=== PATIENT | male | born 1960 | race Caucasian/White ===

== ENCOUNTER 2021-10-23 10:57 | Outpatient (RCR) | payer OTHER, SELFPAY ==
[2021-10-23 11:04] VITALS: BMI 29.7
== END 2022-01-07 13:08 | disposition home or self-care (01) ==
LOC: ANHDMC 10:57
PROVIDERS: PCP Family Medicine; Visit Provider Physician Assistant
DX: E11.65 Type 2 diabetes mellitus with hyperglycemia (principal); Z71.3 Dietary counseling and surveillance
CPT/HCPCS: 97802

== ENCOUNTER 2022-07-31 06:32 | Outpatient (CLI) | payer OTHER, SELFPAY ==
--- NOTE | ~2022-07-31 | CT_ITS ---
EXAMINATION: CT chest abdomen pelvis w con DATE: 07/31/2022 07:13 INDICATION: Renal cell carcinoma. TECHNIQUE: Computed tomography (CT) of the chest, abdomen, and pelvis was performed with 100 mL Omnip aque 350 intravenous contrast. Automated exposure control and iterative reconstruction technique were employed. The dose-length product was 1053.70 mGy-cm. COMPARISON: None FINDINGS: CHEST CT: The lungs demonstrate mild atelectasis. No pleural effusion. The thyroid is enlarged. The heart size is normal. There are coronary artery calcifications. No pericardial effusion. There is mild bilateral gynecomastia. There is mild thoracic spondylosis. ABDOMEN/PELVIS CT: There is a 2.6 cm cyst in the liver. The gallbladder, spleen, pancreas, and adrenal glands are normal . There are changes of partial right nephrectomy. Left kidney is normal. The prostate is mildly enlar ged. There are no dilated loops of bowel. The appendix is normal. There are no dilated loops of bowel . There are no pathologically enlarged lymph nodes. There is no free intraperitoneal fluid. There is a lipoma in right rectus femoris muscle. There is severe degenerative disc disease at L5-S1. IMPRESSION: 1. Partial right nephrectomy. No evidence of metastatic disease. Reviewed, dictated and finalized at location A.
[2022-07-31 07:03] LABS: Estimated Glomerular Filt Rate > 60
== END 2022-07-31 06:33 | disposition home or self-care (01) ==
PROVIDERS: PCP Family Medicine
DX: C64.9 Malignant neoplasm of unspecified kidney, except renal pelvis (principal)
CPT/HCPCS: 71260; 74177; Q9967

== ENCOUNTER → 2023-10-24 12:49 | Outpatient (CLI) | payer OTHER, SELFPAY ==
--- NOTE | ~2023-10-24 | CT_ITS ---
EXAMINATION: CT chest abdomen pelvis w con DATE: 10/24/2023 13:20 INDICATION: History of renal cell carcinoma TECHNIQUE: Transaxial computed tomographic images of the chest, abdomen, and pelvis were obtained aft er the administration of 100 cc of Omnipaque 350 intravenous contrast. The dose-length product (DLP) was 1226.71 mGy-cm. Automated exposure control and iterative reconstruction technique were employed. COMPARISON: 07/31/2022 FINDINGS: CHEST CT: There is mild dependent atelectasis. The lungs are free of focal airspace opacities. No pleural effus ion or pneumothorax. No pathologically enlarged thoracic lymph nodes are identified. The heart size i s normal. Calcified coronary artery atherosclerosis is noted. There is minimal gynecomastia. There is mild thoracic spondylosis. ABDOMEN/PELVIS CT: The liver is diffusely low in attenuation when compared with the spleen, consistent with hepatic stea tosis. There is a 2.2 cm cyst of the right hepatic lobe. The spleen, pancreas, gallbladder, and adren al glands are normal. There are changes of right partial nephrectomy. No suspicious renal lesion is i dentified. There is a circumaortic left renal vein. No pathologically enlarged abdominal or pelvic ly mph nodes are identified. No free intraperitoneal gas or evidence of bowel obstruction. The appendix is normal. There is severe lumbar spondylosis at L5-S1. IMPRESSION: 1. Changes of partial right nephrectomy without evidence of recurrent or metastatic disease. Reviewed, dictated and finalized at location B. N ELEVATOR WORKER IMPRESSION: 1. Changes of partial right nephrectomy without evidence of recurrent or metast atic disease.
[2023-10-24 13:10] LABS: Estimated Glomerular Filt Rate 56
== END ==
PROVIDERS: PCP Family Medicine
DX: C64.9 Malignant neoplasm of unspecified kidney, except renal pelvis (principal)
CPT/HCPCS: 71260; 74177; Q9967

== ENCOUNTER 2024-12-22 00:40 | Day surgery (SDC) | payer OTHER, MEDICARE, SELFPAY ==
[2024-12-07 13:19] VITALS: BMI 29.2
--- OUTSIDE RECORDS SUMMARY | 2024-12-22 00:42 | XMS_ITS ---
Author Organization [facility] [address] [facility] Address [address] [place] [address] Care Team Providers Care Library Associate Name Role Phone Isis Leal MD Primary Care Provider [phone] Active Problems Problem Noted Date Diagnosed Date Abnormal stress test 10/28/2022 Elevated coronary artery calcium score Hypertension associated with diabetes 08/09/2022 Mixed diabetic hyperlipidemi a associated with type 2 diabetes mellitus 08/09/2022 Inappropriate sinus tachycardia 08/09/2022 Renal cell carcinoma 07/06/2020 Cancer Staging:Clinical stage from 08/22/2020:Stage I(cT1a, cN0, cM0) - Signed by Mingo Longo DO on 09/06/2020 Overview (07/06/2020): Added automatically from request for surgery [id number] Current Oncology Plans No current plan information found. Past Plans No past plan information found. Radiation Treatments * No radiation treatments are documented for this patient in [facility]. Treatments may have been administered in another system. Lifetime Dose Tracking * Chemical Lifetime Dose Automatic Entry Manual Entr y DLP 2,852 mGycm 2,852 mGycm 0 mGycm Resolved Problems Problem Noted Date Diagnosed Date Resolved Date Kidney lesion, [place], right 07/06/2020 09/06/2020
--- OUTSIDE RECORDS SUMMARY | 2024-12-22 00:42 | XMS_ITS | Clinical Summary ---
Author Organization [facility] Address [address] [place] [id number] Care Team Providers Care Autoglazier Name Role Phone Isis Leal MD Primary Care Provider [phone] Social History Tobacco Use Types Packs/Day Years Used Date Smoking Tobacco: Never Assessed Sex and Gender Information Value Date Recorded Sex Assigned at Not on file Legal Sex Male 11:27 AM CDT Gender Identity Not on file Sexual Orientation Not on file Plan of Treatment Health Maintenance Due Date Last Done Comments Colorectal Cancer Screening Colonoscopy (10 Years) 1959 Hepatitis C 1977 DTaP, Tdap and Td Vaccines (1 - Tdap) 1978 COVID-19 Vaccine ( season) 2024 09/22/2021, 02/04/2021, 12/27/2020 Influenza Adult (#1) 2024 08/02/2021, 07/11/2020, 07/31/2019, Additional history exists RSV Immunization or 60+ Years (1 - 1-dose 75+ series) 2034 Pneumococcal Vaccine: 65+ Years Completed 02/12/2022, 03/27/2016 Pneumococcal Vaccine: Pediatrics (0 to 5 Years) and At-Risk Patients (6 to 64 Years) Aged Out 02/12/2022, 03/27/2016 No longer eligibl e based on patient's age to complete this topic Zoster Vaccines Completed 02/12/2022, 11/13/2021 Meningococcal B Vaccine Aged Out No l onger eligible based on patient's age to complete this topic Meningococcal Vaccine Aged Out No lalita kiesha eligible based on patient's age to complete this topic RSV Immunizations Under 20 Months Aged Out No longer eligible based on patient's age to complete this topic Insurance R Care Teams Autoglazier Relationship Specialty Start Date End Date Isis Leal MD [address] [place] [address] PCP - General FAMILY PRACTICE 04/04/22
--- OUTSIDE RECORDS SUMMARY | 2024-12-22 00:42 | XMS_ITS | Referral Summary ---
Author Organization [place] [id number] [facility] Address [address] [place] [address] Care Team Providers Care Air Filler Name Role Phone Isis Leal MD Primary Care Provider [phone] Allergies No known active allergies Medications metFORMIN (GLUCOPHAGE) 500 mg tabletIndicatio ns:type 2 diabetes mellitus Take 1 tablet (500 mg total) by mouth daily with breakfast Active atorvastatin (LIPITOR) 80 mg tabletIndicatio ns:hyperlipidem ia Take 1 tablet (80 mg total) by mouth every morning 08/16/20 20 Active lisinopriL (PRINIVIL,ZESTR IL) 40 mg tabletIndicatio ns:hypertension Take 1 tablet (40 mg total) by mouth every morning Active aspirin 81 mg enteric coated tabletIndicatio ns:Primary prevention Take 1 tablet (81 mg total) by mouth as needed Active oxyCODONE (ROXICODONE) 5 mg immediate release tabletIndicatio ns:Pain Take 1 tablet (5 mg total) by mouth every 6 (six) hours as needed for pain 10 tablet 08/23/20 20 Active Additional Information Patient not taking.Reported on 07/07/2024 dapagliflozin propanediol (FARXIGA) 10 mg tablet 1 tablet (10 mg total) daily Prescribed by Renuka Kennedy Active Ozempic 0.25 mg or 0.5 mg (2 mg/3 mL) pen injector injection INJECT 0.25MG SUBCUTANEOUSLY ONCE A WEEK FOR 4 WEEKS 06/07/20 24 Active metoprolol tartrate (LOPRESSOR) 25 mg immediate release tablet Take 1 tablet by mouth twice daily 180 tablet 3 07/19/20 24 Active Active Problems Problem Noted Date Diagnosed Date Abnormal stress test 10/28/2022 Elevated coronary artery calcium score 2 Hypertension associated with diabetes 08/09/2022 Mixed diabetic hyperlipidemi a associated with type 2 diabetes mellitus 08/09/2022 Inappropriate sinus tachycardia 08/09/2022 Renal cell carcinoma 07/06/2020 Cancer Staging:Clinical stage from 08/22/2020:Stage I(cT1a, cN0, cM0) - Signed by Mingo Longo DO on 09/06/2020 Overview (07/06/2020): Added automatically from request for surgery [id number] Resolved Problems Problem Noted Date Diagnosed Date Resolved Date Kidney lesion, [place], right 07/06/2020 09/06/2020 Social History Tobacco Use Types Packs/Day Years Used Date Smoking Tobacco: Never Smokeless Tobacco: Never Tobacco Cessation:Counseling Given: Not Answered Alcohol Use Standard Drinks/Week Comments Yes 3 (1 standard drink = 0.6 oz pur e alcohol) Social Connection and Isolat ion Panel [NHANES] Answer Date Recorded In a typical week, how many times do you talk on the phone with family, friends, or neighbors? More than three times a week 08/23/2020 How often do you get togethe r with friends or relatives? Three times a week 08/23/2020 Attends Gnosticist Services Not on file 08/23 Active Member of Clubs or Organizations Not on f ile 08/23/2020 Attends Club or Organization Meetings Not on fawad e 08/23/2020 Marital Status Not on file 08/23/2020 Overall Financial Resource Strain (CARDIA) Answe r Date Recorded How hard is it for you to pa y for the very basics like food, housing, medical care, and heating? Not hard at all 08/23/2020 Hunger Vital Sign Answer Date Recorded Within the past 12 months, y ou worried that your food would run out before you got the money to buy more. Never true 08/23/20 20 Within the past 12 months, t he food you bought just didn't last and you didn't have money to get more. Never true 08/23/2020 PRAPARE - Transportation Answer Date Re corded In the past 12 months, has l ack of transportation kept you from medical appointments or from getting medications? No 08/10 In the past 12 months, has l ack of transportation kept you from meetings, work, or from getting things needed for daily living? 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 Gender Identity Not on file Sexual Orientation Not on file Last Filed Vital Signs Vital Sign Reading Time Taken Comments Blood Pressure 112/72 07/07/2024 8:15 AM CDT Pulse 84 07/07/2024 8:15 AM CDT Temperature 36.5 C (97.7 F) 09/06/2020 9:14 AM CDT Respiratory Rate 16 08/23/2020 9:40 AM CDT Oxygen Saturation 98% 07/07/2024 8:15 AM CDT Inhaled Oxygen Concentration - - Weight 97.5 kg (215 lb) 07/07/2024 8:15 AM CDT Height 182.9 cm (6') 07/07/2024 8:15 AM CDT Body Mass Index 29.16 07/07/2024 8:15 AM CDT Plan of Treatment Not on file Procedures Procedure Name Priority Date/Time Associated Diagnosis Comments POCT LIPID PANEL Routine 07/07/2024 8:24 AM CDT Lipid screening POCT HEMOGLOBIN A1C Routine 08/18/2020 8 :46 AM CDT from Last 3 Months or Most Recently Relevant to Health Maintenance Results * POCT lipid panel (07/07/2024 8:24 AM CDT) Cholesterol, POC 117 mg/dL HDL, POC 20 mg/dL Triglycerides, POC 173 mg/dL LDL Cholesterol POC 62 mg/dL Chol/HDL Ratio, POC 3.0 Non-HDL Cholesterol, POC 96 mg/dL Cholesterol Total, POC 117 mg/dL Capillary blood 07/07/2024 8 :24 AM CDT Debra Pruett NP POINT OF CARE TEST ORDERABLE S Final Result * (ABNORMAL) POCT hemoglobin A1c (08/18/2020 8:46 AM CDT) Hgb A1C, POC 7.7(H) 4.0 - 6.0 % [facility] Est Average Gluc POC 174 mg/dL [facility] Comment: The ADA recommends reporting an estimated Average Glucose (eAG) with all Hemoglobin A1c results using the equation derived from a study of 507 normal and diabetic adults. Minority populations were underrepresented and children were not included. (Diabetes Care 31:5519-6193, 2008). The eAG is not equivalent to a fasting glucose. Blood specimen (specimen) 08/18/2020 8:46 AM CDT 08/18/2020 8:46 AM CDT Mingo Longo DO POINT OF CARE TEST ORDER SCOTT Final Result [facility] [place] [address] from Last 3 Months or Most Recently Relevant to Health Maintenance Insurance [facility] Advance Directives For more information, please contact: [phone] * Full Code (Latest Code Status on File) Date Activated Date Inactivated Comments 08/22/2020 3:22 PM 08/23/2020 3:21 PM Care Teams Air Filler Relationship Specialty Start Date End Date Isis Leal MD PCP - General 05/26/20
--- OUTSIDE RECORDS SUMMARY | 2024-12-22 00:42 | XMS_ITS | Clinical Summary ---
Author Organization [place] [address] [facility] Address [address] [place] [address] Care Team Providers Care Realtime Captioner Name Role Phone Isis Leal MD Primary Care Provider [phone] Allergies No known active allergies Medications metFORMIN [...] (07/06/2020): Added automatically from request for surgery [id number] Resolved Problems Problem Noted Date Diagnosed Date Resolved Date Kidney lesion, [place], right 07/06/2020 09/06/2020 Surgical History Surgery Date Site/Laterality Comments BRAIN SURGERY 11/10/2007 - 11/09/2008 CRANIECTOMY FOR EXCISION OF ACOUSTIC NEUROMA 11/10/2005 - 11/09/2006 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 Gender Identity Not on file Sexual Orientation Not on file Obstetrics History Last Filed Vital Signs Vital Sign Reading [...] 07/07/2024 8:15 AM CDT Plan of Treatment Health Maintenance Due Date Last Done Comments Albumin Creatinine Ratio, Urine 1959 Colon Cancer Screening-Colonoscopy 1959 Depression Screening 1959 Hepatitis C Screening 1959 Prostate Cancer Screening-PSA 1959 eGFR 1959 Dilated Eye Exam 1959 Foot Exam 1959 DTaP/Tdap/Td Vaccine (1 - Tdap) 1970 Hepatitis B Screening 1977 Zoster Vaccine (1 of 2) 2009 Pneumococcal vaccine 65+ (2 of 2 - PCV) 03/27/2017 03/27/2016 Hemoglobin A1C 02/16/2021 08/18/2020 Fall Risk Assessment 08/23/2021 08/23/2020 Influenza Vaccine (#1) 2024 9, 10/23/2018, 08/02/2015 Well Visit 65+ 2024 Lipid Panel 07/07/2025 07/07/2024, 08/09/2022 Procedures Procedure Name Priority Date/Time Associated Diagnosis [...] A1C, POC 7.7(H) 4.0 - 6.0 % [facility] Est Average Gluc POC 174 mg/dL [facility] Comment: The ADA recommends reporting an estimated Average Glucose (eAG) with all Hemoglobin A1c results using the equation derived from a study of 507 normal and diabetic adults. Minority populations were underrepresented and children were not included. (Diabetes Care 31:8690-9964, 2008). The eAG is not equivalent to a fasting glucose. Blood specimen (specimen) 08/18/2020 8:46 AM CDT 08/18/2020 8:46 AM CDT us Mingojaxon Pressley Danyaishaan DO POINT OF CARE TEST ORDER SCOTT Final Result [facility] Department [place] [address] from Last 3 Months or Most Recently Relevant to Health Maintenance Insurance [facility] Advance Directives For more information, please contact: [phone] * Full Code (Latest Code Status on File) Date Activated Date Inactivated Comments 08/22/2020 3:22 PM 08/23/2020 3:21 PM Care Teams Realtime Captioner Relationship Specialty Start Date End Date Isis Leal MD PCP - General 05/26/20
[2024-12-22 07:31] VITALS: BP 153/80; PULSE 114; RESP 16; TEMP 35.8; O2SAT 98; BMI 28.7
[2024-12-22] MEDS: LACTATED RINGERS 1,000 ML 150 ML IV CONT (07:40)
[2024-12-22 07:42] LABS: Glucose Point of Care 162 mg/dl (65-105)
--- NOTE | 2024-12-22 08:07 | WPDANESEPPF ---
Anes - Initial Pre Proc Eval Procedure: Operation Date: 12/22/24 08:30 Proposed Procedures p Screening Colonoscopy - Judd Arias MD Date/Time: 12/22/24 08:07 Surgeon: Judd Arias MD Pre Op Diagnosis: screening colon Patient Data Age: 64 Gender: M Height: 1.83 m Weight: 96.1 kg Last Vital Signs Temp 96.5 F L 12/22/24 07:31 Pulse 114 H 12/22/24 07:31 Resp 16 12/22/24 07:31 BP 153/80 H 12/22/24 07:31 Pulse Ox 98 12/22/24 07:31 O2 Del Method Room Air 12/22/24 07:31 Allergies Allergy/AdvReac Type Severity Reaction Status Date / Time No Known Allergies Allergy Verified 12/22/24 07:28 Home Medications ?Medication ?Instructions ?Recorded ?Confirmed ?Type blood-glucose meter,continuous #1 ea 09/28/21 12/07/24 Rx (Dexcom G6 Senior Ssis Developer) blood-glucose transmitter (Dexcom #1 ea 09/28/21 12/07/24 Rx G6 Transmitter device) alprazolam 0.25 mg tablet 0.25 mg PO TID PRN anxiety #30 tabs 12/30/21 12/07/24 Rx aspirin 81 mg tablet,delayed 81 mg PO DAILY #100 tabs 11/12/23 12/07/24 Rx release (Adult Low Dose Aspirin) atorvastatin 80 mg tablet (Lipitor) 80 mg PO DAILY #30 tabs 01/12/24 12/22/24 Rx metoprolol tartrate 25 mg tablet 25 mg PO BID 04/21/24 12/22/24 History blood sugar diagnostic (OneTouch #100 ea 05/04/24 12/07/24 Rx Ultra Test strips) metformin 500 mg tablet,extended 500 mg PO TID #270 tabs 05/04/24 12/22/24 Rx release 24 hr semaglutide 0.25 mg or 0.5 mg (2 0.5 mg (0.736 mL) subcut WEEKLY #3 10/12/24 12/22/24 Rx mg/3 mL) subcutaneous pen injector mL (Ozempic) lisinopril 40 mg tablet 40 mg PO DAILY #90 tabs 10/15/24 12/22/24 Rx glimepiride 2 mg tablet 2 mg PO QAM #90 tabs 11/16/24 12/22/24 Rx ertugliflozin 5 mg tablet 5 mg PO DAILY #90 tabs 12/03/24 12/22/24 Rx (Steglatro) Laboratory Tests 12/22/24 07:35 POC Capillary Glucose 162 H mg/dl (65-105) Patient hx anesthesia problems: none Family hx anesthesia problems: none Results Review: All pre-operative results and documents have been reviewed as part of the pre-operative evaluation. [facility] Past Medical History Medical History Hyperlipidemia associated with type 2 diabetes mellitus Coronary artery calcification seen on CT scan Clear cell renal cell carcinoma Anxiety Essential hypertension Type 2 diabetes mellitus without complication Surgical History Surgical History S/P excision of acoustic neuroma Family History Family History Mother Patient's mother is in good health Father Patient's father is in good health, Onset Age: 74 Sibling Patient's sister is in good health Social History Social History Smoking status: Never smoker Second hand tobacco smoke exposure: No Alcohol intake: current Drinks per week: 3 Substance use: never Substance use type: does not use Lack of Transportation: No Lack of Food: Never True Current Housing: I Have Housing Concerned About Future Housing: No Difficulty Paying Gas/Electric Bills: No Difficulty Paying for Meds: No Currently Unemployed: No Education: Bachelor's Degree Difficulty w/ Childcare or Family Care: No Living arrangements: alone Occupation/Education: occupation Gender identity (if verbalized by the patient): Male Sexual Orientation (if Verbalized by the Patient): Straight or Heterosexual Spiritual care concerns: No Agree to blood products: No Anes - Eval Final PreProcedure Day of Procedure 12/22/24 08:07 Patient weight: overweight Lungs: normal air movement Airway: Mallampati scale class II Neurological: alert and oriented Last oral intake: >/= 8 hours ASA classification: III Emergent: no Anesthetic plan: proceed Anesthesia type and monitoring: general GIVS and standard monitoring Results Review: All pre-operative results and documents have been reviewed as part of the pre-operative evaluation. HTN, hyperlipidemia, DM fsbs 162. Informed Consent: The patient's anesthetic plan and its attendant risks and benefits were discussed with the patient/family/POA. Questions were solicited and answers provided to the satisfaction of the patient/family/POA.
--- NOTE | 2024-12-22 08:11 | PM.IMHP ---
H&P: HPI History of Present Illness Date/Time: 12/22/24 08:11 Chief Complaint: History of colon polyps Narrative: The patient has a history of colonic polyps, the last colonoscopy was 5 years ago. Review of Systems Review of Systems: All systems reviewed & are unremarkable except as noted in HPI and below PMFSH Past Medical History Medical History Hyperlipidemia associated with type 2 diabetes mellitus Coronary artery calcification seen on CT scan Clear cell renal cell carcinoma Anxiety Essential hypertension Type 2 diabetes mellitus without complication Surgical History Surgical History S/P excision of acoustic neuroma Family History Family History Mother Patient's mother is in good health Father Patient's father is in good health, Onset Age: 74 Sibling Patient's sister is in good health Social History Social History Smoking status: Never smoker Second hand tobacco smoke exposure: No Alcohol intake: current Drinks per week: 3 Substance use: never Substance use type: does not use Lack of Transportation: No Lack of Food: Never True Current Housing: I Have Housing Concerned About Future Housing: No Difficulty Paying Gas/Electric Bills: No Difficulty Paying for Meds: No Currently Unemployed: No Education: Bachelor's Degree Difficulty w/ Childcare or Family Care: No Living arrangements: alone Occupation/Education: occupation Gender identity (if verbalized by the patient): Male Sexual Orientation (if Verbalized by the Patient): Straight or Heterosexual Spiritual care concerns: No Agree to blood products: No Meds Home Medications and Allergies Home Medications ?Medication ?Instructions ?Recorded ?Confirmed ?Type blood-glucose meter,continuous #1 ea 09/28/21 12/07/24 Rx (Dexcom G6 Locket Maker) blood-glucose transmitter (Dexcom #1 ea 09/28/21 12/07/24 Rx G6 Transmitter device) alprazolam 0.25 mg tablet 0.25 mg PO TID PRN anxiety #30 tabs 12/30/21 12/07/24 Rx aspirin 81 mg tablet,delayed 81 mg PO DAILY #100 tabs 11/12/23 12/07/24 Rx release (Adult Low Dose Aspirin) atorvastatin 80 mg tablet (Lipitor) 80 mg PO DAILY #30 tabs 01/12/24 12/22/24 Rx metoprolol tartrate 25 mg tablet 25 mg PO BID 04/21/24 12/22/24 History blood sugar diagnostic (OneTouch #100 ea 05/04/24 12/07/24 Rx Ultra Test strips) metformin 500 mg tablet,extended 500 mg PO TID #270 tabs 05/04/24 12/22/24 Rx release 24 hr semaglutide 0.25 mg or 0.5 mg (2 0.5 mg (0.736 mL) subcut WEEKLY #3 10/12/24 12/22/24 Rx mg/3 mL) subcutaneous pen injector mL (Ozempic) lisinopril 40 mg tablet 40 mg PO DAILY #90 tabs 10/15/24 12/22/24 Rx glimepiride 2 mg tablet 2 mg PO QAM #90 tabs 11/16/24 12/22/24 Rx ertugliflozin 5 mg tablet 5 mg PO DAILY #90 tabs 12/03/24 12/22/24 Rx (Steglatro) Allergies Allergy/AdvReac Type Severity Reaction Status Date / Time No Known Allergies Allergy Verified 12/22/24 07:28 Vital Signs Vital Signs - 24 hr 12/22/24 07:31 Temperature 96.5 F L Pulse Rate 114 H Respiratory Rate 16 Blood Pressure 153/80 H Pulse Oximetry 98 Oxygen Delivery Room Air Exam Const: General: cooperative and healthy appearing Resp: Effort & Inspection: normal respiratory effort and able to speak in complete sentences Auscultation: clear to auscultation bilaterally Cardio: Rate: regular rate Rhythm: regular rhythm GI: Inspection: normal to inspection GI Palp: No No hepatosplenomegaly present Auscultation: normal bowel sounds Rectal Exam: deferred Skin: General skin exam: normal color Psych: Appearance: grossly normal Mental Status: mental status grossly normal Assessment and Plan Assessment and plan (1) History of colonic polyps: Code(s): Z86.0100 - Personal history of colon polyps, unspecified Status: Acute Assessment and Plan: The patient is deemed a good candidate for the procedure. Consent signed. Will proceed.
[2024-12-22 08:38] VITALS: BP 100/62; PULSE 105; RESP 20; O2SAT 98
[2024-12-22 08:48] VITALS: BP 97/64; PULSE 97; RESP 20; O2SAT 97
[2024-12-22 08:58] VITALS: BP 113/64; PULSE 94; RESP 20; O2SAT 97
== END 2024-12-22 09:13 | disposition home or self-care (01) ==
PROVIDERS: PCP Family Medicine; Visit Provider Internal Medicine Gastroenterology
PROC: 0DJD8ZZ Inspection of Lower Intestinal Tract, Via Natural or Artificial Opening Endoscopic (ICD-10-PCS; CPT 45378; principal; 2024-12-22 08:30)
DX: Z12.11 Encounter for screening for malignant neoplasm of colon (principal); D12.5 Benign neoplasm of sigmoid colon; K64.8 Other hemorrhoids; E11.9 Type 2 diabetes mellitus without complications
CPT/HCPCS: 45385; 82948; 88305; J2704; J7120